=== PATIENT | male | born 1995 | race Two or more races ===

== ENCOUNTER 2017-10-11 08:26 | Emergency (ER) | payer SELFPAY ==
--- NOTE | 2017-10-11 08:39 | EDM.PDOC ---
ED HPI GENERAL MEDICAL PROBLEM - General Chief Complaint: Abdominal Pain Stated Complaint: ABDOMINAL PAIN Time Seen by Provider: 10/11/17 08:39 Source of Information: Reports: Patient History Limitations: Reports: No Limitations - History of Present Illness INITIAL COMMENTS - FREE TEXT/NARRATIVE: 21-year-old male presents to the ED with reported initial fever 3 days ago with some chills. Subsequent reexpansion intermittent abdominal cramping pain initially worsened by eating. Has had increased stool frequency with looseness of stools but no true diarrhea. No blood noted. Remains nauseated. He states he wishes to just throw up. This particularly present this morning. He states he did eat pretty normal yesterday. No feel lightheaded dizzy when standing. No one else he knows is been ill. Currently on no medications. He tried Trista - seltzer thsi am with no releif and seemed to make things worse rather than better. Onset: Gradual Onset Date: 10/08/17 Duration: Day(s): (Illness started about 3 days ago.), Intermittent, Waxing/ Waning Location: Reports: Abdomen (Intermittent nausea no vomiting.) Quality: Reports: Throbbing, Other (Intermittent diffuse abdominal cramps.) Improves with: Reports: None Worsens with: Reports: None Context: Denies: Activity, Exercise, Lifting, Sick Contact, Trauma Associated Symptoms: Reports: Cough, Nausea/Vomiting. Denies: No Other Symptoms , Confusion, Chest Pain, cough w sputum, Diaphoresis, Fever/Chills, Headaches, Loss of Appetite, Malaise, Seizure, Shortness of Breath, Syncope, Weakness ( Nausea without vomiting) Treatments LEAD PROGRAMMER: Reports: Other (see below) Other Treatments LEAD PROGRAMMER: Trista-seltzer prior to ER arrival Abdomen Pain Score (Numeric/FACES): 6 - Related Data Allergies Allergy/AdvReac Type Severity Reaction Status Date / Time No Known Allergies Allergy Verified 10/11/17 08:37 Home Meds: Home Meds Ondansetron [Zofran] 4 mg BUCCAL Q6H PRN #4 tab 10/11/17 [Rx] Social & Family History - Living Situation & Occupation Living situation: Reports: Single ED ROS GENERAL - Review of Systems Review Of Systems: See Below Constitutional: Reports: Fever, Chills (Initial onset of illness with fever and chills 3 days ago.), Malaise, Fatigue, Decreased Appetite HEENT: Reports: No Symptoms Respiratory: Reports: Cough (Getting over a bronchitis. Cough is minimally productive now.) Cardiovascular: Reports: No Symptoms Endocrine: Reports: No Symptoms GI/Abdominal: Reports: Abdominal Pain (Remained abdominal cramping pain), Diarrhea, Decreased Appetite, Nausea. Denies: Constipation (Looser stools but no diarrhea or water loss.), Difficulty Swallowing, Distension, Flatus, Hematemesis, Hematochezia, Melena, Mucous in Stool, Vomiting : Reports: No Symptoms Musculoskeletal: Reports: No Symptoms Skin: Reports: No Symptoms Neurological: Reports: No Symptoms Psychiatric: Reports: No Symptoms Hematologic/Lymphatic: Reports: No Symptoms ED EXAM, GI/ABD - Physical Exam Exam: See Below Exam Limited By: No Limitations General Appearance: Alert, WD/WN, No Apparent Distress Eyes: Bilateral: Normal Appearance Throat/Mouth: Other Head: Atraumatic (Lips are dry. Tongue is minimally coated.), Normocephalic Neck: Normal Inspection, Supple, Non-Tender, Full Range of Motion. No: Lymphadenopathy (L), Lymphadenopathy (R) Respiratory/Chest: No Respiratory Distress, Lungs Clear, Normal Breath Sounds, No Accessory Muscle Use Cardiovascular: Normal Peripheral Pulses, Regular Rate, Rhythm, No Edema, No Gallop, No Murmur GI/Abdominal Exam: Normal Bowel Sounds, Soft, Non-Tender, No Organomegaly, No Distention, No Abnormal Bruit, No Mass, Pelvis Stable (Male) Exam: No Hernia Back Exam: Normal Inspection, Full Range of Motion Extremities: Normal Inspection, Normal Range of Motion, Non-Tender, No Pedal Edema Neurological: Alert, Oriented, CN II-XII Intact, Normal Cognition Psychiatric: Normal Affect, Normal Mood Skin Exam: Warm, Dry, Intact, Normal Color, No Rash Course - Vital Signs Last Recorded V/S: Last Vital Signs Temp 36.9 C 10/11/17 08:30 Pulse 68 10/11/17 10:40 Resp 16 10/11/17 10:40 BP 130/79 10/11/17 10:40 Pulse Ox 100 10/11/17 10:40 - Orders/Labs/Meds Orders: Active Orders 24 hr Category Date Time Status Abdomen 1V Flat [CR] Stat Exams 10/11/17 08:51 Taken Labs: Laboratory Tests 10/11/17 10/11/17 Range/Units 08:45 08:45 WBC 7.29 (4.23-9.07) K/mm3 RBC 5.11 (4.63-6.08) M/mm3 Hgb 15.6 (13.7-17.5) gm/L Hct 47.5 (40.1-51.0) % MCV 93.0 H (79.0-92.2) fl MCH 30.5 (25.7-32.2) pg MCHC 32.8 (32.2-35.5) g/dl RDW Std Deviation 43.5 (35.1-43.9) fL Plt Count 303 (163-337) K/mm3 MPV 10.0 (9.4-12.3) fl Neutrophils % (Manual) 67 H (40-60) % Band Neutrophils % 0 (0-10) % Lymphocytes % (Manual) 24 (20-40) % Atypical Lymphs % 0 % Monocytes % (Manual) 7 (2-10) % Eosinophils % (Manual) 2 (0.8-7.0) % Basophils % (Manual) 0 L (0.2-1.2) Platelet Estimate Adequate RBC Morph Comment Normal Sodium 141 (136-145) mEq/L Potassium 3.8 (3.5-5.1) mEq/L Chloride 102 (98-107) mEq/L Carbon Dioxide 32 (21-32) mEq/L Anion Gap 10.8 (5-15) BUN 11 (7-18) mg/dL Creatinine 0.8 (0.7-1.3) mg/dL Est Cr Clr Drug Dosing 119.53 mL/min Estimated GFR (MDRD) > 60 (>60) mL/min BUN/Creatinine Ratio 13.8 L (14-18) Glucose 101 (74-106) mg/dL Calcium 8.8 (8.5-10.1) mg/dL Total Bilirubin 0.2 (0.2-1.0) mg/dL AST 9 L (15-37) U/L ALT 21 (16-63) U/L Alkaline Phosphatase 102 (46-116) U/L Total Protein 7.9 (6.4-8.2) g/dl Albumin 4.0 (3.4-5.0) g/dl Globulin 3.9 gm/dL Albumin/Globulin Ratio 1.0 (1-2) Lipase 98 (73-393) U/L Meds: Medications Discontinued Medications Generic Name Dose Route Start Last Admin Trade Name Kayla PRN Reason Stop Dose Admin Dextrose/Sodium Chloride 1,000 mls @ 999 mls/hr 10/11/17 08:45 10/11/17 08:55 Dextrose 5%-Normal Saline IV 999 mls/hr ASDIRECTED KATHERYN Administration Ketorolac Tromethamine 30 mg 10/11/17 09:00 10/11/17 08:58 Toradol IVPUSH 30 mg ONETIME KATHERYN Administration Magnesium Citrate 210 ml 10/11/17 10:11 10/11/17 10:41 Citrate Of Magnesia PO 10/11/17 10:12 210 ml ONETIME ONE Administration Metoclopramide HCl 7.5 mg 10/11/17 08:47 10/11/17 08:56 Reglan IVPUSH 10/11/17 08:48 7.5 mg ONETIME ONE Administration - Radiology Interpretation Free Text/Narrative:: 21-year-old male presents to the ED with persistent GI symptoms for 3 days. States initial and mils came on about 3 days ago with fever and some chills associated loose stools but no diarrhea. Persistent nausea that is perhaps worsened by eating. He has not yet eaten this morning. He ate fairly normal yesterday he believes. Nausea is intermittent waxing and waning and that's the reason he primarily came to the hospital. He feels a persistent need to vomit and has tried to make himself vomit but can't. Benign examination with normal vital signs. Suspect viral gastroenteritis. Plan IV D5 normal saline at open. Reglan 7.5 mg IV for nausea relief Toradol [address] Gallego pain relief. Routine labs and one view of the abdomen will be performed. - Re-Assessments/Exams Free Text/Narrative Re-Assessment/Exam: 10/11/17 10:01 Labs are back. Total white count is 7.29 with 67% neutrophils and no bands. Hemoglobin is 15.6 with hematocrit of 47.5. Platelet count normal 303,000. Sodium is 141 with potassium of 3.8. Chloride is 102 with a bicarbonate 32. Anion gap is 10.8. BUN is 11 with a creatinine of 0.8. Glucose is 11. Calcium is 8.8. Total bilirubin is 0.2. Liver function otherwise normal. Lipase is 98. KUB reveals increased stool throughout the colon. This particular noted at the hepatic flexure. The descending colon and there is a large bolus of stool in the rectal vault. He may well have a viral gastroenteritis but he's had no diarrhea just nausea. He clinically is constipated. 10/11/17 10:11 patient has less nausea but he continues to have intermittent abdominal cramping pain. This most likely secondary to constipation identified on x-ray. Will be Citroma or magnesium citrate 7 ounces by mouth next with 4-5 ounces of juice of choice. I will send him home with a couple of Zofran 4 mg sublingual to be taken when necessary for nausea relief if needed. I think once his bowel cleanse occurs from the Citroma he will feel markedly improved. He was reassured of normal lab values. Departure - Departure Time of Disposition: 10:12 Disposition: Home, Self-Care 01 Condition: Fair Clinical Impression: Constipation by delayed colonic transit, Nausea Abdominal pain Qualifiers: Abdominal location: periumbilical Qualified Code(s): R10.33 - Periumbilical pain - Discharge Information Prescriptions: Ondansetron [Zofran] 4 mg BUCCAL Q6H PRN #4 tab PRN Reason: nausea or vomiting Instructions: Abdominal Pain, Adult, [id number] Referrals: PCP,None [Primary Care Provider] - Forms: ED Department Discharge Additional Instructions: Evaluation in the emergency room today in regards to recurrent abdominal pain associated with nausea the last 3 days without any diarrhea. Pain tends to come and go and is strongly colicky or crampy in etiology. No associated fever or chills. Decreased appetite today. Initial onset of fever and chills 3 days ago suggests possible viral gastroenteritis-like symptoms. However he never developed any true vomiting or diarrhea. Lab work done today reveals a normal white count with no signs of an infective process. Normal pancreas and liver function. X-ray does reveal increased stool throughout the colon particularly up in the right upper quadrant under your liver and the entire left hemicolon down to the rectal vault. I suspect constipation is the cause of your current abdominal cramping pain and associated nausea. Suggest treatment to be Citroma or magnesium citrate 7 ounces mixed with 545 ounces of juice of choice taken by mouth once. This will start work in 1-2 hours and usually make her bowels move 3 or 4 times today. This should provide provide relief of the abdominal pain and I suspect the nausea. I will give you a prescription for Zofran 4 mg back to be taken under your tongue every 4-6 hours if needed for nausea relief. Suggest plenty of fluids and resume diet when able. Return to medical care if abdominal pain not markedly improved after bowel cleanse. - My Orders Last 24 Hours: My Active Orders 10/11/17 08:51 Abdomen 1V Flat [CR] Stat - Assessment/Plan Last 24 Hours: My Active Orders 10/11/17 08:51 Abdomen 1V Flat [CR] Stat
[2017-10-11] MEDS ORDERED: Dextrose 5%-0.9% NaCl 1,000 ML IV SCH (08:45)
[2017-10-11] MEDS ORDERED: Metoclopramide 10 MG/2 ML SDV IVPUSH ONE (08:47)
[2017-10-11] MEDS ORDERED: Ketorolac 30 MG/ML SDV IVPUSH SCH (09:00)
[2017-10-11] MEDS ORDERED: Magnesium Citrate Solution 296 ML Bottle PO ONE (10:11)
--- NOTE | 2017-10-12 14:27 | CR ---
Abdomen: Supine view of the abdomen was obtained. Comparison: No previous study. Several loops of gas-filled small bowel are seen which are felt to be within normal limits. No abnormal calcifications or soft tissue abnormality is seen. Bony structures are unremarkable. No abnormal calcifications are seen. Impression: 1. Unremarkable supine abdominal x-ray. Diagnostic code #1
== END 2017-10-11 10:45 | disposition home or self-care (01) ==
LOC: JD.ED 08:26
DX: K59.01 Slow transit constipation (principal); R11.0 Nausea
CPT/HCPCS: 36415; 74018; 80053; 83690; 85025; 96361; 96374; 96375; 99284; A9270; J1885; J2765; J7042